=== PATIENT | male | born 2000 | race Caucasian/White ===

== ENCOUNTER 2023-04-17 11:48 | Observation (INO) | payer BC ==
--- NOTE | 2023-04-17 13:19 | CT ---
EXAMINATION TYPE: CT brain wo con DATE OF EXAM: 04/17/2023 COMPARISON: None. HISTORY: dizziness, pain in right arm CT DLP: 1139.4 mGycm. Automated Exposure Control for Dose Reduction was Utilized. TECHNIQUE: CT scan of the head is performed without contrast. FINDINGS: There is no acute intracranial hemorrhage, mass effect, or midline shift identified. The ventricles and sulci are within normal limits in size. Orourke-white matter differentiation is maintain ed. The globes are intact and the visualized sinuses are clear. IMPRESSION: No acute intracranial hemorrhage or midline shift is seen. Unremarkable study.
[2023-04-17 13:21] LABS: Basophils % (A) 0 %; Eosinophils % (A) 0 %; HCT 42.1 % (39.0-53.0); HGB 14.8 gm/dL (13.0-17.5); Lymphocytes # (A) 0.7 k/uL (1.0-4.8); Lymphocytes % (A) 9 %; MCH 31.9 pg (25.0-35.0); MCHC 35.2 g/dL (31.0-37.0); MCV 90.5 fL (80.0-100.0); Mean Platelet Volume 7.5; Monocytes # (A) 0.3 k/uL (0-1.0); Monocytes % (A) 5 %; Neutrophils # (A) 6.1 k/uL (1.3-7.7); Neutrophils % (A) 85 %; Platelet Count 193 k/uL (150-450); RBC 4.65 m/uL (4.30-5.90); RDW 12.3 % (11.5-15.5); WBC 7.1 k/uL (3.8-10.6)
[2023-04-17 13:24] LABS: Appearance,Urine Clear (Clear); Bilirubin,Urine Negative (Negative); Blood,Urine Negative (Negative); Color,Urine Light Yellow; Glucose,Urine (UA) Negative (Negative); Ketones,Urine Negative (Negative); Leukocyte Esterase,Urine Negative (Negative); Nitrite,Urine Negative (Negative); PH, Urine 7.5 (5.0-8.0); Protein,Urine Negative (Negative); Specific Gravity,Urine 1.008 (1.001-1.035); Urobilinogen,Urine <2.0 mg/dL (<2.0)
[2023-04-17 13:36] LABS: ALT 20 U/L (4-49); AST 26 U/L (17-59); African American GFR (CKD) >90 (>60 ml/min/1.73 sqM); Albumin 4.7 g/dL (3.5-5.0); Alkaline Phosphatase 58 U/L (38-126); Anion Gap 8 mmol/L; Blood Urea Nitrogen 11 mg/dL (9-20); Calcium 9.3 mg/dL (8.4-10.2); Carbon Dioxide 27 mmol/L (22-30); Chloride 102 mmol/L (98-107); Glucose 95 mg/dL (74-99); Non-African American GFR(CKD) >90 (>60 ml/min/1.73 sqM); Potassium 4.2 mmol/L (3.5-5.1); Sodium 137 mmol/L (137-145); Total Bilirubin 1.1 mg/dL (0.2-1.3); Total Protein 7.3 g/dL (6.3-8.2)
[2023-04-17 14:16] LABS: Amphetamine Screen,Urine Not Detected (NotDetected); Barbiturate Screen,Urine Not Detected (NotDetected); Benzodiazepines Screen,Urine Not Detected (NotDetected); Cocaine Screen,Urine Not Detected (NotDetected); Methadone Screen, Urine Not Detected (NotDetected); Opiate Screen,Urine Not Detected (NotDetected); Oxycodone Screen, Urine Not Detected (NotDetected); Phencyclidine Screen,Urine Not Detected (NotDetected); Tricyclic Antidepressant,Urine Not Detected (NotDetected); Urn Cannabinoid Scrn Not Detected (NotDetected)
--- NOTE | 2023-04-17 15:22 | P.CNNES ---
History of Present Illness Consult date: 04/17/23 Requesting physician: Teto Boland Reason for Consult: pain right sided with dizziness History of Present Illness: This is a 22-year-old gentleman who is fairly healthy presented to the emergency department for the first time regarding recurrent episode of dizziness, pain and near passing out. Patient states for the past 3 weeks he's been having recurrent episodes of pain that starts in the feels in the right shoulder lateral chest region and he feels the pain shoots down the right arm and leg he feels dizzy and that he has a sensation of passing out but does not pass out. He stated that the episode the were brief in the beginning and less frequent and currently they're becoming more frequent and constant. He stated that all these 3 things happen at the same time the dizziness the pain and near passing out. He denies any urinary or bowel incontinence, tongue bite. Denies any focal weakness. Denies history of seizures. He states she is fairly healthy otherwise. He socially drinks alcohol. Otherwise denies tobacco or any illicit drug use. He is not on any medication now. Guarding his history he stated it was normal no complication. Regarding family history there is a family history of myotonic dystrophy (his mother) but no history of seizure. No history of MS according to him. Some of the work-up during this visit consisted of: So far CBC, comprehensive metabolic panel, urine drug screen, serum alcohol and urine analysis is unremarkable. CT of the head is reported as no acute intracranial hemorrhage or midline shift seen. Unremarkable study. I personally reviewed the CT and I agree with the report. Review of Systems Review of system: The 12 point system was reviewed and apparent positive and negative per HPI. Past Medical History Past Medical History: No Reported History History of Any Multi-Drug Resistant Organisms: None Reported Past Surgical History: Orthopedic Surgery Additional Past Surgical History / Comment(s): 2016 broken left arm, Past Psychological History: No Psychological Hx Reported Smoking Status: Never smoker Past Alcohol Use History: Occasional Past Drug Use History: None Reported Medications and Allergies Home Medications Medication Instructions Recorded Confirmed Type No Known Home Medications 04/17/23 04/17/23 History Allergies Allergy/AdvReac Type Severity Reaction Status Date / Time Sulfa (Sulfonamide AdvReac Unknown Verified 04/17/23 14:38 Antibiotics) Physical Examination - Vital Signs Vital Signs: Vital Signs Temp Pulse Pulse Resp BP Pulse Ox 04/17/23 14:00 60 18 128/75 99 04/17/23 12:42 78 18 142/74 100 04/17/23 12:05 61 04/17/23 11:51 98.6 F 60 18 138/80 100 Intake and Output 04/17/23 04/17/23 04/17/23 06:59 14:59 22:59 Other: Weight 68.039 kg GENERAL: The patient is lying in bed and is not in acute distress. NEUROLOGICAL: Higher mental function: The patient is awake, alert, oriented to self, place and time. Patient is following commands. No aphasia and no neglect. Cranial nerves: The pupils are round, equal and reactive to light and accommodation. Visual [place] are full to confrontation throughout. Extraocular movement is intact no nystagmus is noted. Facial sensation is normal to touch throughout. The facial strength is normal throughout. Hearing is normal bilaterally to hand rub. Tongue is midline and moved [id number] without any difficulty. No dysarthria is noted. Shoulder shrug is normal bilaterally. Motor: Gait is normal. The strength is 5 over 5 throughout. Normal tone and bulk. Cerebellum: Normal finger to nose bilaterally. Sensation: Sensation is normal to touch throughout. Reflexes (right/left): 2+ throughtout (some of his reflex study had to be illicited multiple times). Plantars are downgoing bilaterally. Results - Laboratory Findings CBC and BMP: 04/17/23 12:40 04/17/23 12:40 Abnormal Lab Findings: Abnormal Labs 04/17/23 12:40 Lymphocytes # 0.7 L Assessment and Plan Assessment: This is a 22-year-old gentleman who presents because of the for the past 3 weeks has been having brief episode of recurrent pain over right shoulder entire upper extremity as well as lower extremity with dizziness in association of the passing out at the same time. He stated there were less frequent in the beginning but now they've become more frequent in the recumbent more constant. Recurrent episode of dizziness, pain involving the entire right upper and lower extremity with sensation of passing out: Unknown etiology at this time. Rule out focal seizure without LOC vs other central cause such as ?demylinating lesion (which seem unsual for his presentation). Family history of myotonic dystrophy Plan: I ordered MRI of the brain and cervical spine with and without to rule out any lesions that can illicit his symptoms. Ordered a routine EEG to rule out any underlying seizure discharges Ordered a CK level, LDH, aldolase level, vitamin B12, folate, myoglobin and TSH. Ordered orthostatic vitals. We'll defer the rest of the medical management to primary team Plan discussed with the patient and the ED attending Thank you for the consultation Dr. Griffin will start neurology service tomorrow A.M. Time with Patient: Greater than 30
--- NOTE | 2023-04-17 15:38 | ED ---
General Adult HPI - General Chief complaint: Chest Pain Stated complaint: chest pain Time Seen by Provider: 04/17/23 12:00 Source: patient, RN notes reviewed, old records reviewed Mode of arrival: EMS Limitations: no limitations - History of Present Illness Initial comments: This is a 22-year-old male who presents emergency Department complaining of two- week history of right sided pain followed by lightheadedness and is in a little bit of nausea. Patient states started about 2 weeks ago happened once and then was a few days before to happen again is becoming more frequent to the point where today he was having every 5 seconds for a few hours the pain was severe it's in his right flank leg arm and some right-sided patient states that he becomes very lightheaded and thinks he might pass out or fall over. Patient denies any numbness or weakness currently. Patient states he was so nervous that he called EMS to bring him into the hospital. Patient states it did occur one time when he was with EMS. - Related Data Home Medications Medication Instructions Recorded Confirmed No Known Home Medications 04/17/23 04/17/23 Allergies Allergy/AdvReac Type Severity Reaction Status Date / Time Sulfa (Sulfonamide AdvReac Unknown Verified 04/17/23 14:38 Antibiotics) Review of Systems ROS Statement: Those systems with pertinent positive or pertinent negative responses have been documented in the HPI. ROS Other: All systems not noted in ROS Statement are negative. Past Medical History Past Medical History: No Reported History History of Any Multi-Drug Resistant Organisms: None Reported Past Surgical History: Orthopedic Surgery Additional Past Surgical History / Comment(s): 2016 broken left arm, Past Psychological History: No Psychological Hx Reported Smoking Status: Never smoker Past Alcohol Use History: Occasional Past Drug Use History: None Reported General Exam - General Exam Comments Initial Comments: GENERAL: Patient is well-developed and well-nourished. Patient is nontoxic and well- hydrated and is in mild distress. ENT: Neck is soft and supple. No significant lymphadenopathy is noted. Oropharynx is clear. Moist mucous membranes. Neck has full range of motion without eliciting any pain. EYES: The sclera were anicteric and conjunctiva were pink and moist. Extraocular movements were intact and pupils were equal round and reactive to light. Eyelids were unremarkable. PULMONARY: Unlabored respirations. Good breath sounds bilaterally. No audible rales rhonchi or wheezing was noted. CARDIOVASCULAR: There is a regular rate and rhythm without any murmurs gallops or rubs. ABDOMEN: Soft and nontender with normal bowel sounds. SKIN: Skin is clear with no lesions or rashes and otherwise unremarkable. NEUROLOGIC: Patient is alert and oriented x3. Cranial nerves II through XII are grossly intact. Motor and sensory are also intact. Normal speech, volume and content. Symmetrical smile. MUSCULOSKELETAL: Normal extremities with adequate strength and full range of motion. No lower extremity swelling or edema. No calf tenderness. LYMPHATICS: No significant lymphadenopathy is noted PSYCHIATRIC: Mildly anxious Limitations: no limitations Course Vital Signs 04/17/23 04/17/23 04/17/23 11:51 12:05 12:42 Temperature 98.6 F Pulse Rate 60 78 Pulse Rate [ 61 Chrome Plater ] Respiratory 18 18 Rate Blood Pressure 138/80 142/74 O2 Sat by Pulse 100 100 Oximetry 04/17/23 14:00 Temperature Pulse Rate 60 Pulse Rate [ Chrome Plater ] Respiratory 18 Rate Blood Pressure 128/75 O2 Sat by Pulse 99 Oximetry Medical Decision Making - Medical Decision Making EKG was interpreted by me. EKG shows sinus rhythm at 61 bpm OH interval is on 17 QRS is 96 QT interval 393 QTC is 396 per patient's EKG shows no ST segment elevation or depression. Was pt. sent in by a medical professional or institution ([facility], [employer], urgent care, hospital, or prison...) When possible be specific @ -[No] Did you speak to anyone other than the patient for history (EMS, parent, family, police, friend...)? What history was obtained from this source @ -[No] Did you review nursing and triage notes (agree or disagree)? Why? @ -[I reviewed and agree with nursing and triage notes] Were old charts reviewed (outside hosp., previous admission, EMS record, old EKG, old radiological studies, urgent care reports/EKG's, prison records)? Report findings @ -[No old charts were reviewed] Differential Diagnosis (chest pain, altered mental status, abdominal pain women, abdominal pain men, vaginal bleeding, weakness, fever, dyspnea, syncope, headache, dizziness, GI bleed, back pain, seizure, CVA, palpatations, mental health, musculoskeletal)? @ -Differential Seizure: Recurrent seizure disorder, febrile seizure, alcohol withdrawal, stimulants, meningitis, encephalitis, intercranial hemorrhage, intracranial tumor, stroke, eclampsia, thyrotoxicosis, hypocalcemia, hyponatremia, hypernatremia, hypomagn esemia, psychogenic, this is not meant to be an all-inclusive list. EKG interpreted by me (3pts min.). @ -[As above] X-rays interpreted by me (1pt min.). @ -[None done] CT interpreted by me (1pt min.). @ -CT of the brain showed no acute abnormality U/S interpreted by me (1pt. min.). @ -[None done] What testing was considered but not performed or refused? (CT, X-rays, U/S, labs)? Why? @ -[None] What meds were considered but not given or refused? Why? @ -[None] Did you discuss the management of the patient with other professionals (professionals i.e. , PA, [employer] TAKE OUT WORKER, lab, RT, psych nurse, marriage and family social worker, night clerk, teacher, campus safety officer, director of casework services)? Give summary @ -I spoke with Dr. Armin Abraham he came down and saw the patient in the emergency department. I spoke with Dr. Lei she agreed to come down and see the patient in the agreed to admit the patient Was smoking cessation discussed for >3mins.? @ -No Was critical care preformed (if so, how long)? @ -[No] Were there social determinants of health that impacted care today? How? (Homelessness, low income, unemployed, alcoholism, drug addiction, transportation, low edu. Level, literacy, decrease access to med. care, group home, rehab)? @ -[No] Was there de-escalation of care discussed even if they declined (Discuss DNR or withdrawal of care, Hospice)? DNR status @ -[No] What co-morbidities impacted this encounter? (DM, HTN, Smoking, COPD, CAD, Cancer, CVA, ARF, Chemo, Hep., AIDS, mental health diagnosis, sleep apnea, morbid obesity)? @ -[None] Was patient admitted / discharged? Hospital course, mention meds given and route, prescriptions, significant lab abnormalities, going to OR and other pertinent info. @ -Patient will be admitted to Dr. Villafana for further evaluation by neurology Dr. Armin Abraham will see her in the emergency department and then will see him on the floor Undiagnosed new problem with uncertain prognosis? @ -[No] Drug Therapy requiring intensive monitoring for toxicity (Heparin, Nitro, Insulin, Cardizem)? @ -[No] Were any procedures done? @ -[No] Diagnosis/symptom? @ -Right-sided pain Acute, or Chronic, or Acute on Chronic? @ -Acute Uncomplicated (without systemic symptoms) or Complicated (systemic symptoms)? @ -Complicated Side effects of treatment? @ -[No] Exacerbation, Progression, or Severe Exacerbation? @ -[No] Poses a threat to life or bodily function? How? (Chest pain, [place], [place], pneumonia, PE, COPD, DKA, ARF, appy, cholecystitis, CVA, Diverticulitis, Homicidal, Suicidal, threat to staff... and all critical care pts) @ -Yes patient to be having seizures - Lab Data Result diagrams: 04/17/23 12:40 04/17/23 12:40 Lab Results 04/17/23 04/17/23 04/17/23 Range/Units 12:40 12:40 12:40 WBC 7.1 (3.8-10.6) k/uL RBC 4.65 (4.30-5.90) m/uL Hgb 14.8 (13.0-17.5) gm/dL Hct 42.1 (39.0-53.0) % MCV 90.5 (80.0-100.0) fL MCH 31.9 (25.0-35.0) pg MCHC 35.2 (31.0-37.0) g/dL RDW 12.3 (11.5-15.5) % Plt Count 193 (150-450) k/uL MPV 7.5 Neutrophils % 85 % Lymphocytes % 9 % Monocytes % 5 % Eosinophils % 0 % Basophils % 0 % Neutrophils # 6.1 (1.3-7.7) k/uL Lymphocytes # 0.7 L (1.0-4.8) k/uL Monocytes # 0.3 (0-1.0) k/uL Eosinophils # 0.0 (0-0.7) k/uL Basophils # 0.0 (0-0.2) k/uL Sodium 137 (137-145) mmol/L Potassium 4.2 (3.5-5.1) mmol/L Chloride 102 (98-107) mmol/L Carbon Dioxide 27 (22-30) mmol/L Anion Gap 8 mmol/L BUN 11 (9-20) mg/dL Creatinine 0.67 (0.66-1.25) mg/dL Est GFR (CKD-EPI)AfAm >90 (>60 ml/min/1.73 sqM) Est GFR (CKD-EPI)NonAf >90 (>60 ml/min/1.73 sqM) Glucose 95 (74-99) mg/dL Calcium 9.3 (8.4-10.2) mg/dL Total Bilirubin 1.1 (0.2-1.3) mg/dL AST 26 (17-59) U/L ALT 20 (4-49) U/L Alkaline Phosphatase 58 (38-126) U/L Total Protein 7.3 (6.3-8.2) g/dL Albumin 4.7 (3.5-5.0) g/dL Urine Color Light Yellow Urine Appearance Clear (Clear) Urine pH 7.5 (5.0-8.0) Ur Specific [place] 1.008 (1.001-1.035) Urine Protein Negative (Negative) Urine Glucose (UA) Negative (Negative) Urine Ketones Negative (Negative) Urine Blood Negative (Negative) Urine Nitrite Negative (Negative) Urine Bilirubin Negative (Negative) Urine Urobilinogen <2.0 (<2.0) mg/dL Ur Leukocyte Esterase Negative (Negative) Urine Opiates Screen (NotDetected) Ur Oxycodone Screen (NotDetected) Urine Methadone Screen (NotDetected) Ur Propoxyphene Screen (NotDetected) Ur Barbiturates Screen (NotDetected) U Tricyclic Antidepress (NotDetected) Ur Phencyclidine Scrn (NotDetected) Ur Amphetamines Screen (NotDetected) U Methamphetamines Scrn (NotDetected) U Benzodiazepines Scrn (NotDetected) Urine Cocaine Screen (NotDetected) U Marijuana (THC) Screen (NotDetected) Serum Alcohol mg/dL 04/17/23 04/17/23 Range/Units 12:40 14:00 WBC (3.8-10.6) k/uL RBC (4.30-5.90) m/uL Hgb (13.0-17.5) gm/dL Hct (39.0-53.0) % MCV (80.0-100.0) fL MCH (25.0-35.0) pg MCHC (31.0-37.0) g/dL RDW (11.5-15.5) % Plt Count (150-450) k/uL MPV Neutrophils % % Lymphocytes % % Monocytes % % Eosinophils % % Basophils % % Neutrophils # (1.3-7.7) k/uL Lymphocytes # (1.0-4.8) k/uL Monocytes # (0-1.0) k/uL Eosinophils # (0-0.7) k/uL Basophils # (0-0.2) k/uL Sodium (137-145) mmol/L Potassium (3.5-5.1) mmol/L Chloride (98-107) mmol/L Carbon Dioxide (22-30) mmol/L Anion Gap mmol/L BUN (9-20) mg/dL Creatinine (0.66-1.25) mg/dL Est GFR (CKD-EPI)AfAm (>60 ml/min/1.73 sqM) Est GFR (CKD-EPI)NonAf (>60 ml/min/1.73 sqM) Glucose (74-99) mg/dL Calcium (8.4-10.2) mg/dL Total Bilirubin (0.2-1.3) mg/dL AST (17-59) U/L ALT (4-49) U/L Alkaline Phosphatase (38-126) U/L Total Protein (6.3-8.2) g/dL Albumin (3.5-5.0) g/dL Urine Color Urine Appearance (Clear) Urine pH (5.0-8.0) Ur Specific [place] (1.001-1.035) Urine Protein (Negative) Urine Glucose (UA) (Negative) Urine Ketones (Negative) Urine Blood (Negative) Urine Nitrite (Negative) Urine Bilirubin (Negative) Urine Urobilinogen (<2.0) mg/dL Ur Leukocyte Esterase (Negative) Urine Opiates Screen Not Detected (NotDetected) Ur Oxycodone Screen Not Detected (NotDetected) Urine Methadone Screen Not Detected (NotDetected) Ur Propoxyphene Screen Not Detected (NotDetected) Ur Barbiturates Screen Not Detected (NotDetected) U Tricyclic Antidepress Not Detected (NotDetected) Ur Phencyclidine Scrn Not Detected (NotDetected) Ur Amphetamines Screen Not Detected (NotDetected) U Methamphetamines Scrn Not Detected (NotDetected) U Benzodiazepines Scrn Not Detected (NotDetected) Urine Cocaine Screen Not Detected (NotDetected) U Marijuana (THC) Screen Not Detected (NotDetected) Serum Alcohol <10 mg/dL Disposition Clinical Impression: Pain of right side of body, Lightheaded Disposition: ADMITTED IP TO THIS HOSP Referrals: JESSICA CORDOVA MD [Primary Care Provider] - 1-2 days Time of Disposition: 15:41
--- NOTE | 2023-04-17 16:18 | P.HPIM ---
History of Present Illness H&P Date: 04/17/23 Patient is a 22-year-old male with no significant past medical history who presented to the ER with complaints of pain and dizziness for the last 2 weeks. On arrival to the ER his vital signs within normal limits. Laboratory analysis is unremarkable. CT brain demonstrated no acute intracranial hemorrhage or midline shift. There is concern for possible neurologic etiology and neurology was consulted in the ER. They did recommend admission. Patient was subsequently admitted to our group for possible seizures. Patient seen and examined at bedside. He reports unusual "episodes" over the last 2 weeks. He states he gets dizzy and then immediately started having shooting electrical type feelings down his right chest arm and leg. These have been getting more frequent in today with the most severe and longest lasting. He reports that today he also felt this electrical shooting up into his neck and jaw. 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 He states that these episodes had been lasting approximately 20 seconds but today's lasted several minutes. He denies any post ictal feelings, he denies any warnings that these are coming on. He states they do not typically happen at rest but they do happen when he is just simply walking and not exerting himself much. He does report memory issues that have been developing over the last 1 year. He initially thought it was due to stress from work. He denies any history of seizures in the past or family history of seizure. He denies any history of cardiac issues. He does not use any illicit drugs or have history of significant illicit drug use. He denies any loss of bowel or bladder control. He denies any recent viral illnesses such as coughs colds, fevers, nausea, vomiting, diarrhea. Vital signs reviewed General: nontoxic, no distress, appears at stated age Derm: warm, dry Eyes: EOMI, no lid lag, anicteric sclera, pupils equal round reactive to light ENT: Nose and ears atraumatic, no thrush, no pharyngeal erythema Cardiovascular: S1S2 reg, no murmur, positive posterior tibial pulse bilateral, no edema, capillary refill less than 2 seconds Lungs: clear to auscultation bilateral, no rhonchi, no rales, no wheeze, no accessory muscle use Abdominal: soft, nontender to palpation, no guarding, no appreciable organom egaly, normal bowel sounds Ext: no gross muscle atrophy, muscle strength 5 out of 5 in all 4 extremities, no contractures Neuro: CN II-XII grossly intact, light touch intact all 4 extremities, finger to nose within normal limits, Psych: Alert, oriented, appropriate affect Assessment: Recovering paresthesias over the right side of his body Recurrent episodes of dizziness associated with the above Imaging: As per HPI Data Review: As per HPI Plan: -Case discussed with ER physician. Place patient in observation -Case discussed with neurologist- this is concerning for possible non-motor seizure. We will proceed with MRI of the brain and EEG -Check stat lactic acid and prolactin level -Neurology has ordered CK, LDH, aldolase, B12, folate, myoglobin, and TSH -Telemetry, echocardiogram to rule out arrhythmia as etiology -Seizure precautions -Discussed with patient calling staff prior to ambulation given his dizziness -Check orthostatic vital signs The patient is admitted with an anticipated less than 2 midnight stay for evaluation of right sided paraesthesia with concern for seizure. Surrogate decision-maker: Mother Anticipated discharge date: in 24-[address]: home This dictation was prepared using Draft voice recognition software. Though every attempt is made to correct errors during dictation some may still exist. Past Medical History Past Medical History: No Reported History History of Any Multi-Drug Resistant Organisms: None Reported Past Surgical History: Orthopedic Surgery Additional Past Surgical History / Comment(s): 2016 broken left arm, Past Psychological History: No Psychological Hx Reported Smoking Status: Never smoker Past Alcohol Use History: Occasional Past Drug Use History: None Reported - Past Family History Mother Additional Family Medical History / Comment(s): myotonic dystrophy Medications and Allergies Home Medications Medication Instructions Recorded Confirmed Type No Known Home Medications 04/17/23 04/17/23 History Allergies Allergy/AdvReac Type Severity Reaction Status Date / Time Sulfa (Sulfonamide AdvReac Unknown Verified 04/17/23 14:38 Antibiotics) Physical Exam Osteopathic Statement: *. No significant issues noted on an osteopathic structural exam other than those noted in the History and Physical/Consult. Vitals: Vital Signs Temp Pulse Pulse Resp BP Pulse Ox 04/17/23 16:00 71 18 98 04/17/23 14:00 60 18 128/75 99 04/17/23 12:42 78 18 142/74 100 04/17/23 12:05 61 04/17/23 11:51 98.6 F 60 18 138/80 100 Intake and Output 04/17/23 04/17/23 04/17/23 06:59 14:59 22:59 Other: Weight 68.039 kg Results CBC & Chem 7: 04/17/23 12:40 04/17/23 12:40 Labs: Abnormal Lab Results - Last 24 Hours (Table) 04/17/23 Range/Units 12:40 Lymphocytes # 0.7 L (1.0-4.8) k/uL
[2023-04-17] MEDS ORDERED: ACETAMINOPHEN TAB 325 MG TAB PO PRN (16:49)
[2023-04-17] MEDS ORDERED: HYDROcodone/APAP 5-325MG 1 EACH TAB PO PRN (16:49)
[2023-04-17] MEDS ORDERED: bisacodyL 5 MG TABLET.DR PO PRN (16:49)
[2023-04-17] MEDS ORDERED: ONDANSETRON 4 MG/2 ML VIAL IVP PRN (16:49)
[2023-04-17] MEDS ORDERED: MELATONIN 5 MG TABLET PO PRN (16:49)
[2023-04-17 16:54] LABS: Creatine Kinase 85 U/L (55-170); LDH 200 U/L (120-246)
--- NOTE | 2023-04-18 13:27 | P.PN ---
Subjective Progress Note Date: 04/18/23 (Delayed charting seen at 0840) Patient is a 22-year-old male with no significant past medical history who presented to the ER with complaints of pain and dizziness for the last 2 weeks. On arrival to the ER his vital signs within normal limits. Laboratory analysis is unremarkable. CT brain demonstrated no acute intracranial hemorrhage or midline shift. There is concern for possible neurologic etiology and neurology was consulted in the ER. They did recommend admission. Patient was subsequently admitted to our group for possible seizures. He was seen by neurology who recommends EEG and MRI of the brain. Patient seen and examined at bedside. He states that he has felt fairly well overnight and has not had many significant episodes. He denies any chest pain or shortness of breath he is aware that we need to obtain an MRI, EEG, and echocardiogram prior to discharge. Vital signs reviewed General: nontoxic, no distress, appears at stated age Cardiovascular: S1S2 reg, no murmur, positive posterior tibial pulse bilateral, Lungs: CTA bilateral, no rhonchi, no rales , no accessory muscle use Abdominal: soft, nontender to palpation, no guarding, no appreciable organ omegaly Ext: no gross muscle atrophy, no edema b/l lower extremities, no contractures Neuro: CN II-XI grossly intact, no focal neuro deficits Psych: Alert, oriented, appropriate affect Assessment: Recurring paresthesias over the right side of his body Recurrent episodes of dizziness associated with the above Imaging: None new Data Review: Vital signs reviewed and temperature 97.8, pulse 52, respirations 14, blood pressure 122/74, O2 sat 100% on room air Labs reviewed: LDH 200, CK 85, lactic acid 1.5, B12 724, TSH 0.933, folate 18 point Plan: -Await EEG, MRI -Await repeat neurologic evaluation -Await echo -Telemetry reviewed without any significant episodes of arrhythmia -Await aldolase and myoglobin Patient will need to remain here overnight as MRI is unavailable until 04/19/23. The above testing be negative would recommend outpatient neurologic follow-up with possible EMG testing. This dictation was prepared using [employer] voice recognition software. Though every attempt is made to correct errors during dictation some may still exist. Objective - Vital Signs Vital signs: Vital Signs Temp 97.8 F 04/18/23 07:00 Pulse 52 L 04/18/23 07:00 Resp 14 04/18/23 07:00 BP 122/74 04/18/23 07:00 Pulse Ox 100 04/18/23 07:00 FiO2 Intake & Output 04/17/23 04/18/23 04/18/23 18:59 06:59 18:59 Intake Total 658 Balance 658 Weight 68.039 kg 68.039 kg Intake: Oral 658 Other: Voiding Method Toilet Toilet # Voids 2 - Labs CBC & Chem 7: 04/17/23 12:40 04/17/23 12:40
--- NOTE | 2023-04-18 16:59 | P.PN ---
Subjective Progress Note Date: 04/18/23 Patient initially seen by Dr. Armin Abraham. Please refer to his note for details. Patient is a 22-year-old male with recurrent episodes of dizziness, as is about to pass out and pain over right-sided for past 3 weeks and becoming frequent. Patient states that about 2 weeks ago he started having consistent dizziness, and some shooting pain involving the right leg, arm extending to the right side of the neck and behind the right eye. It happened one time and then reappeared a few days later and then became more frequent occurring about once or twice a day, each of them lasting for just a split second with no lasting effect. On the day of admission it was happening once every 15 minutes. Since he came to the hospital, the symptoms have somewhat resolved. At present he feels fine. Patient's mother was also present, who agrees she has a diagnosis of myotonic dystrophy type II. She used to have some shooting pains also. She is to have myotonia, which now has resolved. Objective - Vital Signs Vital signs: Vital Signs Temp 97.7 F 04/18/23 14:00 Pulse 60 04/18/23 14:00 Resp 16 04/18/23 14:00 BP 126/72 04/18/23 14:00 Pulse Ox 99 04/18/23 14:00 FiO2 Intake & Output 04/17/23 04/18/23 04/18/23 18:59 06:59 18:59 Intake Total 658 Balance 658 Weight 68.039 kg 68.039 kg Intake: Oral 658 Other: Voiding Method Toilet Toilet # Voids 2 3 - Exam Patient's mental status, speech and language functions are normal. Cranial nerves are normal. Muscle strength is normal in the arms and legs. Reflexes are somewhat hypoactive. Sensations are equal. No ataxia. No myotonia. - Labs CBC & Chem 7: 04/17/23 12:40 04/17/23 12:40 Assessment and Plan Assessment: This is a 22-year-old gentleman who presents because of the for the past 3 weeks has been having brief episode of recurrent pain over right shoulder entire upper extremity as well as lower extremity with dizziness in association of the passing out at the same time. He stated there were less frequent in the beginning but now they've become more frequent in the recumbent more constant. Recurrent episode of dizziness, pain involving the entire right upper and lower extremity with sensation of passing out: Unknown etiology at this time. Rule out focal seizure without LOC vs other central cause such as ?demylinating lesion (which seem unsual for his presentation). Family history of myotonic dystrophy type 2(in mother) Plan: Await MRI of the brain and cervical spine with and without to rule out any lesions that can illicit his symptoms. EEG was normal awake and drowsy. No epileptiform activity was seen. CK level normal 85, LDH 200, vitamin B12 724, folate 18.8, myoglobin and TSH 0.933 all normal. Pending aldolase. Orthostatic vitals. Patient may benefit from EMG testing as an outpatient to look for myotonic discharges. Neurologically clear, if MRI of the brain comes back normal. Patient has not had any shocking pain since arrival to the hospital. May consider gabapentin if symptoms reappeared. May follow up with neurologist outpatient. Discussed with primary team.
--- NOTE | 2023-04-18 18:19 | EEG ---
ELECTROENCEPHALOGRAM REPORT PREAMBLE: This is a 22-year-old male with episode of numbness and feeling passing out. EEG FINDINGS: This is a 21-channel digital EEG recorded with video component, utilizing 10/20 International System with referential and bipolar montages. Background consists of well-developed, well-regulated, moderate-voltage activity in 10 Hz alpha. Background is posterior dominant and reactive to eye opening and closing. Photic driving response was seen with some flash frequencies. Drowsiness was seen with appearance of bilaterally symmetric theta frequency rhythm. Deeper stages of sleep were not seen. Hyperventilation was not performed. No focal or generalized epileptiform activity was seen. EKG channel showed no obvious arrhythmia. IMPRESSION: This is a normal awake and drowsy EEG. No focal, lateralized, or epileptiform activity was seen. MMODL / IJN: [id number] /
[2023-04-19 05:19] VITALS: RESP 16
--- NOTE | 2023-04-19 10:45 | CA ---
Transthoracic Echo Report Name: Edward Ma Age: 22 Gender: M : 2000 Exam Date: 04/18/2023 07:51 Exam Location: [facility] Ht (in): 72 Wt (lb): 150 Ordering Physician: Katia Lei DO Attending/Referring Phys: [id number], Do Crane Crew Supervisor Alexandria Alcantar RDCS Procedure CPT: Indications: Murmur Cardiac Hx: Technical Quality: Fair Contrast 1: Total Dose (mL): Contrast 2: Total Dose (mL): MEASUREMENTS (Male / Female) Normal Values 2D ECHO LV Diastolic Diameter PLAX 4.2 cm 4.2 - 5.9 / 3.9 - 5.3 cm LV Systolic Diameter PLAX 2.9 cm IVS Diastolic Thickness 1.0 cm 0.6 - 1.0 / 0.6 - 0.9 cm LVPW Diastolic Thickness 0.9 cm 0.6 - 1.0 / 0.6 - 0.9 cm LV Relative Wall Thickness 0.5 RV Internal Dim ED PLAX 3.2 cm LV Diastolic Volume MOD BP 107.4 cm??? 67 - 155 / 56 - 104 cm??? LV Systolic Volume MOD BP 54.7 cm??? 22 - 58 / 19 - 49 cm??? LV Ejection Fraction MOD BP 49.1 % >= 55 % LV Cardiac Index MOD BP 1566.8 cm???/min???m??? LV Diastolic Volume MOD 4C 83.1 cm??? LV Systolic Volume MOD 4C 43.6 cm??? LV Ejection Fraction MOD 4C 47.5 % LV Cardiac Index MOD 4C 1173.3 cm???/min???m??? LV Diastolic Length 4C 7.6 cm LV Systolic Length 4C 6.8 cm LV Diastolic Volume MOD 2C 123.9 cm??? LV Systolic Volume MOD 2C 63.0 cm??? LV Ejection Fraction MOD 2C 49.2 % LV Cardiac Index MOD 2C 1810.3 cm???/min???m??? LV Diastolic Length 2C 8.6 cm LV Systolic Length 2C 7.5 cm LA Volume 43.6 cm??? 18 - 58 / 22 - 52 cm??? M-MODE Aortic Root Diameter MM 3.0 cm LA Systolic Diameter MM 3.2 cm LA Ao Ratio MM 1.1 DOPPLER AV Peak Velocity 127.3 cm/s AV Peak Gradient 6.5 mmHg AV Mean Velocity 93.7 cm/s AV Mean Gradient 3.9 mmHg AV Velocity Time Integral 29.2 cm LVOT Peak Velocity 107.8 cm/s LVOT Peak Gradient 4.6 mmHg LVOT Velocity Time Integral 22.6 cm MV Area PHT 3.5 cm??? Mitral E Point Velocity 109.4 cm/s Mitral A Point Velocity 45.4 cm/s Mitral E to A Ratio 2.4 MV Deceleration Time 218.2 ms MV E' Velocity 16.3 cm/s Mitral E to MV E' Ratio 6.7 TR Peak Velocity 218.2 cm/s TR Peak Gradient 19.0 mmHg Right Ventricular Systolic Press 24.0 mmHg FINDINGS Left Ventricle Left ventricular cavity size normal. Left ventricular wall thickness normal. No obvious regional wall motion abnormalities. Left ventricular ejection fraction is estimated at 50-55 %. Right Ventricle Normal right ventricular size and function. Right ventricular systolic pressure within normal limits. Right Atrium Normal right atrial size. Left Atrium Normal left atrial size. Mitral Valve Structurally normal mitral valve. Mild mitral regurgitation. Aortic Valve Trileaflet aortic valve. No aortic valve stenosis or regurgitation. Tricuspid Valve Structurally normal tricuspid valve. Mild tricuspid regurgitation. Pulmonic Valve Structurally normal pulmonic valve. Trace pulmonic regurgitation. Pericardium Minimal pericardial effusion (normal variant). Pericardial effusion located near the right atrium. Aorta Normal size aortic root and proximal ascending aorta. CONCLUSIONS Normal LV systolic function No significant abnormalities identified Previewed by: Dr. Hugh Liu MD (Electronically Signed) Final Date: 19 April 2023 10:45
[2023-04-19 15:25] VITALS: BP 122/66; PULSE 56; TEMP 97.5
--- NOTE | 2023-04-19 18:35 | P.DS ---
Providers Date of admission: 04/17/23 16:09 Expected date of discharge: 04/19/23 Attending physician: Katia Lei DO Consults: 04/17/23 16:09 Consult Physician Urgent Consulting Provider: Armin Abraham Consult Reason/Comments: Right-sided pain and lightheadedness Do you want consulting provider notified?: Already Contacted Primary care physician: JESSICA CORDOVA MD Hospital Course: Assessment: Recurring paresthesias over the right side of his body Recurrent episodes of dizziness associated with the above Patient is a 22-year-old male with no significant past medical history who presented to the ER with complaints of pain and dizziness for the last 2 weeks. On arrival to the ER his vital signs within normal limits. Laboratory analysis is unremarkable. CT brain demonstrated no acute intracranial hemorrhage or midline shift. There is concern for possible neurologic etiology and neurology was consulted in the ER. They did recommend admission. Patient was subsequently admitted to our group for possible seizures. He was seen by neurology who recommends EEG and MRI of the brain. Both EEG and MRI of the brain returned normal as read by neurology service. Patient was ultimately discharged home with instructions to follow-up with primary care. Gen: awake, alert HEENT: normocephalic, atraumatic, good hearing acuity, moist mucous membranes Resp: good air exchange, breathing comfortably with no accessory muscle use CVS: good distal perfusion x 4, GI: soft, NTTP, ND : no SPT, no CVAT, winston catheter not present MSK: no pitting edema, no clubbing Neuro: non-focal, moving all extremities Psych: cooperative, euthymic mood Patient Condition at Discharge: Good Plan - Discharge Summary New Discharge Prescriptions: New Acetaminophen Tab [Tylenol] 650 mg PO Q6HR PRN tab PRN Reason: Fever And/ Or Pain Discharge Medication List Acetaminophen Tab [Tylenol] 650 mg PO Q6HR PRN tab 04/19/23 [Rx] Follow up Appointment(s)/Referral(s): JESSICA CORDOVA MD [Primary Care Provider] - 1-2 days Discharge Disposition: HOME SELF-CARE
--- NOTE | 2023-04-19 19:28 | MR ---
EXAMINATION TYPE: MR brain/cspine wo/w DATE OF EXAM: 04/19/2023 6:06 PM CLINICAL INDICATION:Male, 22 years old with history of numbness right side with dizziness; Numbness r ight side with dizziness COMPARISON: CT brain 04/17/2023 TECHNIQUE: Multiplanar, multisequence images of the brain and brainstem is performed. Multi planar, multi sequence imaging was performed utilizing: T1-weighted, T2-weighted, and turbo inv ersion recovery imaging of the cervical spine. MR IV Contrast: 7 cc Gadavist FINDINGS: BRAIN: Diffusion weighted images demonstrate no evidence of a recent infarct or other diffusion abnormality. There is no extra-axial fluid collection or significant white matter signal abnormality. The ventr icular system and cisternal spaces are normal in size and appearance. The brain volume is age approp riate. Midline structures demonstrate normal morphology. The craniocervical junction appears within normal limits. The dural venous sinuses appear patent. Post contrast images demonstrate no abnormal enhancement The bone marrow signal is within normal limits. Paranasal sinuses and mastoid air cells: Mild scattered paranasal sinus disease. Visualized orbits: Orbital contents are intact. C-SPINE: Alignment: The cervical vertebral bodies have preserved heights. Alignment is within normal limits gi narda patient positioning. Bones: Bone signal is within normal limits. Cord: The spinal cord is unremarkable with regards to their signal intensity and morphology. Discs: Intervertebral disc signal is maintained. C2-C3: No significant disc pathology. The spinal canal is patent. No neural foraminal stenosis. C3-C4: No significant disc pathology. The spinal canal is patent. No neural foraminal stenosis. C4-C5: No significant disc pathology. The spinal canal is patent. No neural foraminal stenosis. C5-C6: No significant disc pathology. The spinal canal is patent. No neural foraminal stenosis. C6-C7: No significant disc pathology. The spinal canal is patent. No neural foraminal stenosis. C7-T1: No significant disc pathology. The spinal canal is patent. No neural foraminal stenosis. Other: None. IMPRESSION: 1. No evidence for active demyelination. 2. No evidence of intracranial mass, acute/subacute infarct, or abnormal enhancement. 3. No evidence for significant spinal canal or neural foraminal stenosis. Cord signal is maintained.
--- NOTE | 2023-04-21 12:50 | P.PN ---
Subjective Progress Note Date: 04/19/23 04/19/2023: Patient was seen for a follow-up. Patient says that he had 1 episode of transient right-sided paresthesias/shocking pain. Denies any new neurological symptoms. 04/18/2023: Patient initially seen by Dr. Armin Abraham. Please refer to his note for details. Patient is a 22-year-old male with recurrent episodes of dizziness, as is about to pass out and pain over right-sided for past 3 weeks and becoming frequent. Patient states that about 2 weeks ago he started having consistent dizziness, and some shooting pain involving the right leg, arm extending to the right side of the neck and behind the right eye. It happened one time and then reappeared a few days later and then became more frequent occurring about once or twice a day, each of them lasting for just a split second with no lasting effect. On the day of admission it was happening once every 15 minutes. Since he came to the hospital, the symptoms have somewhat resolved. At present he feels fine. Patient's mother was also present, who agrees she has a diagnosis of myotonic dystrophy type II. She used to have some shooting pains also. She is to have myotonia, which now has resolved. Objective - Vital Signs Vital signs: Vital Signs Temp 97.6 F 04/19/23 07:00 Pulse 55 L 04/19/23 07:00 Resp 16 04/19/23 07:00 BP 108/61 04/19/23 07:00 Pulse Ox 99 04/19/23 07:00 FiO2 Intake & Output 04/18/23 04/19/23 04/19/23 18:59 06:59 18:59 Intake Total 776 Balance 776 Intake: Oral 776 Other: Voiding Method Toilet Toilet # Voids 3 2 - Exam Patient's mental status, speech and language functions are normal. Cranial nerves are normal. Muscle strength is normal in the arms and legs. Reflexes are somewhat hypoactive. Sensations are equal. No ataxia. No myotonia. Patient's gait is normal. Patient can walk on his toes, heels, tandem. Romberg negative. - Labs CBC & Chem 7: 04/17/23 12:40 04/17/23 12:40 Assessment and Plan Assessment: Recurrent episode of dizziness, shocking pain/paresthesias involving the entire right upper and lower extremity, right side of the neck and behind the right eye, with sensation of passing out: Unknown etiology at this time. Doubt focal seizure because of normal EEG. Rule out ?demylinating lesion (which seem unsual for his presentation). Family history of myotonic dystrophy type 2(in mother) Plan: MRI of the brain with and without contrast is completely normal, with no evidence of mass, or demyelination. I personally reviewed MRI agree with the findings. MRI of the cervical spine with and without is also normal. No significant spinal canal or neural foraminal stenosis. Cord signal is normal. I personally reviewed MRI and agree with the findings. EEG was normal awake and drowsy. No epileptiform activity was seen. CK level normal 85, LDH 200, vitamin B12 724, folate 18.8, myoglobin normal 31 and TSH 0.933 all normal. Aldolase normal 3.0. Orthostatic checked supine blood pressure 131/62, pulse rate 58, sitting 131/77 with pulse rate of 64, standing blood pressure 123/64 with pulse rate of 90. Orthostatics normal. Patient may benefit from EMG testing as an outpatient to look for myotonic discharges. Neurologically clear for discharge. Patient has not had any shocking pain since arrival to the hospital. May consider gabapentin if symptoms reappeared. May follow up with neurologist outpatient. Discussed with primary team.
== END 2023-04-19 18:52 | disposition home or self-care (01) ==
LOC: EC 11:48 → 6NMEDSUR 16:09
PROVIDERS: ADMIT Internal Medicine; ATTEND Internal Medicine
DX: R42 Dizziness and giddiness (principal); R52 Pain, unspecified; R20.2 Paresthesia of skin; Z88.2 Allergy status to sulfonamides
CPT/HCPCS: 99285; 36415; 95816; 93005; 93306; 80053; 84443; 82607; 82085; 82550; 82746; 83605; 83615; 85025; 81003; 84146; 80306; 80320; 83874; 70450; 70553; 72156; G0378 ×3; A9585